=== PATIENT | female | born 2000 | race Asian ===

== ENCOUNTER 2024-04-20 00:41 | Inpatient (IN) | payer OTHER ==
[2024-04-20 01:30] VITALS: BMI 24.9
[2024-04-20] MEDS: LACTATED RINGERS SOLUTION 1,000 ML/1,000 ML INFUS.BAG IV SCH (01:30)
[2024-04-20 01:34] LABS: BASO % 0.2 % (0-2.0); EOS % 0.1 % (0-4.5); HEMATOCRIT 31.1 % (32.4-45.2); HEMOGLOBIN 10.1 GM/dL (10.7-15.3); MCH 25.4 pg (25.7-33.7); MCHC 32.6 g/dl (32.0-36.0); MEAN CELL VOLUME 77.8 fl (80-96); MONO % 4.5 % (3.8-10.2); NEUT % 87.2 % (42.8-82.8); PLATELET COUNT 276 10^3/uL (134-434); RBC 3.99 M/mm3 (3.60-5.2); RDW 14.2 % (11.6-15.6); WHITE BLOOD COUNT 16.7 K/mm3 (4.0-10.0)
[2024-04-20 01:47] LABS: INR 0.97 (0.83-1.09); PROTHROMBIN TIME (PATIENT) 10.6 SEC (9.7-13.0)
[2024-04-20 01:50] LABS: ACTIVATED PTT 29.7 SECONDS (25.2-36.5)
[2024-04-20 01:54] LABS: POTASSIUM 3.6 mmol/L (3.5-5.1)
[2024-04-20 01:55] LABS: CALCIUM 8.7 mg/dL (8.5-10.1)
[2024-04-20 01:56] LABS: BLOOD UREA NITROGEN 8.4 mg/dL (7-18)
[2024-04-20] MEDS ORDERED: FENTANYL/BUPIVACAINE/NS/PF - PCEA - 50 ML DISP.SYRIN EP ONE (01:56)
[2024-04-20 01:59] LABS: CREATININE 0.5 mg/dL (0.55-1.3)
[2024-04-20] MEDS ORDERED: FENTANYL CITRATE/PF 50 MCG/ML VIAL ONE (02:05)
[2024-04-20] MEDS ORDERED: BUPIVACAINE HCL/PF 0.25% (2.5MG/ML) 10 ML VIAL ONE (02:05)
[2024-04-20] MEDS: FENTANYL/BUPIVACAINE/NS/PF - PCEA - 50 ML DISP.SYRIN EP SCH (02:20)
[2024-04-20] MEDS ORDERED: NALOXONE HCL 0.4 MG/ML VIAL IVPUSH PRN (02:48)
[2024-04-20] MEDS ORDERED: LIDO 2%/EPI 1:200000 PRESRVFRE (20 ML SDVIAL) ONE (03:06)
[2024-04-20] MEDS ORDERED: TERBUTALINE SULFATE 1 MG/1 ML VIAL SQ ONE (03:06)
[2024-04-20] MEDS: TERBUTALINE SULFATE 1 MG/1 ML VIAL SQ ONE (03:10)
[2024-04-20] MEDS: OXYTOCIN 20 UNITS in 0.9% NS 20 UNIT/1,000 ML INFUS.BAG IV SCH (06:00)
[2024-04-20] MEDS: METHYLERGONOVINE MALEATE 0.2 MG/1 ML AMP IM PRN (06:07)
[2024-04-20] MEDS ORDERED: ACETAMINOPHEN 325 MG TABLET (FP) PO PRN (06:24)
[2024-04-20] MEDS ORDERED: WITCH HAZEL 50% (TUCKS) 40 PAD/JAR PAD TP PRN (06:24)
[2024-04-20] MEDS ORDERED: oxyCODONE HCL 5 MG TABLET PO PRN (06:24)
[2024-04-20] MEDS ORDERED: BENZOCAINE 28 GM HEMORRHOIDAL OINTMENT TP PRN (06:24)
[2024-04-20] MEDS ORDERED: BENZOCAINE 20% 57 GM BOTTLE TP PRN (06:24)
[2024-04-20] MEDS ORDERED: BISACODYL 10 MG SUPP.RECT RC PRN (06:24)
[2024-04-20] MEDS: FERROUS SO4 325 MG TABLET (FP) PO SCH (08:23)
[2024-04-20] MEDS: PRENATAL VITAMINS W/ FOLIC ACID TABLET (FP) PO SCH (09:55)
[2024-04-20] MEDS: IBUPROFEN 600 MG TABLET (FP) PO PRN (10:10)
[2024-04-21 08:01] LABS: BASO % 0.3 % (0-2.0); EOS % 0.5 % (0-4.5); HEMATOCRIT 27.2 % (32.4-45.2); HEMOGLOBIN 8.6 GM/dL (10.7-15.3); LYMPH % 17.2 % (8-40); MCH 25.3 pg (25.7-33.7); MCHC 31.8 g/dl (32.0-36.0); MEAN CELL VOLUME 79.6 fl (80-96); MEAN PLT VOLUME 8.4 fl (7.5-11.1); MONO % 3.5 % (3.8-10.2); NEUT % 78.5 % (42.8-82.8); PLATELET COUNT 221 10^3/uL (134-434); RBC 3.41 M/mm3 (3.60-5.2); RDW 13.4 % (11.6-15.6); WHITE BLOOD COUNT 13.5 K/mm3 (4.0-10.0)
[2024-04-21] MEDS: DIPHTH,PERTUSS(ACELL),TET 0.5 ML DISP.SYRIN IM ONE (10:54)
[2024-04-21] MEDS: FLU VACCINE (FLULAVAL) PF 45 MCG/0.5 ML SYRINGE 2024-2025 IM ONE (10:56)
[2024-04-21] MEDS ORDERED: SENNOSIDES/DOCUSATE COMBO (SENNA PLUS) TABLET (UD) PO PRN (22:00)
[2024-04-22 09:33] VITALS: BP 107/64; PULSE 97; RESP 18; TEMP 97.9
== END 2024-04-22 13:35 | disposition home or self-care (01) | DRG 807 ==
LOC: JDEL 00:41 → JLDR 00:55 → J3W 08:10
PROVIDERS: ADMIT Obstetrics & Gynecology; ATTEND Obstetrics & Gynecology
PROC: 10E0XZZ Delivery of Products of Conception, External Approach (ICD-10-PCS; principal; 2024-04-20)
DX: O80 Encounter for full-term uncomplicated delivery (principal); Z37.0 Single live birth; Z3A.37 37 weeks gestation of pregnancy
CPT/HCPCS: 36415; 59025; 59409; 80048; 85025; 85610; 85730; 86780; 86803; 86850; 86900; 86901; 90656; 90715; G0008